=== PATIENT | female | born 1950 | race Caucasian/White ===

== ENCOUNTER 2017-01-09 09:02 | Emergency (ER) | payer MEDICARE ==
[~2017-01-09] VITALS: Ht 170.2 cm; Wt 59.1 kg
[~2017-01-09 09:02] MED LIST: ALBU8.5H3 INH; ASPI-496 PO; ATOR80TA75 PO; AZIT250T89 PO; CARV6.252 PO; CEFD300C37 PO; CLOP75TA PO; DOCU100T3 PO; DOXY100T PO; FEXO180T5 PO; FLUT1DIS3 INH; FLUT9.9S INH; FURO40TA6 PO; GABA300C10 PO; IPRA3AMP INH; ISOS30TA8 PO; LOSA25TA5 PO; NITR0.4T8 SL; OXYC-229 PO; PANT40TA5 PO; PRED20TA PO; PRED5TAB PO; RANI300T PO
[2017-01-09] MEDS ORDERED: SODIUM CHLORIDE FLUSH 10ML SYR IVF ONE (09:30)
[2017-01-09] MEDS ORDERED: ASPIRIN 81 MG TABLET CHEW ONE (09:57)
[2017-01-09 09:58] LABS: HEMATOCRIT 36.7 % (34.6-47.8); HEMOGLOBIN 12.1 g/dL (11.7-16.4)
[2017-01-09] MEDS ORDERED: ASPIRIN 81 MG TABLET CHEW PO ONE (10:00)
[2017-01-09 10:07] LABS: ASPARTATE AMINO TRANSFERASE 12 U/L (15-37); BLOOD UREA NITROGEN 16 mg/dL (7-18)
[2017-01-09 10:13] LABS: IS PT STATUS REG ER OR PRE ER? YES
[2017-01-09] MEDS ORDERED: ALBUTEROL/IPRATROPIUM 2.5MG/0.5MG, 3 ML ONE (10:43)
[2017-01-09] MEDS ORDERED: methylPREDNISolone SOD SUCC 125 MG/2 ML IVP ONE (11:00)
[2017-01-09] MEDS ORDERED: ALBUTEROL/IPRATROPIUM 2.5MG/0.5MG, 3 ML NPPB ONE (11:00)
[2017-01-09 11:04] VITALS: BP 154/71
[2017-01-09] MEDS ORDERED: methylPREDNISolone SOD SUCC 125 MG/2 ML ONE (11:10)
== END 2017-01-09 11:33 | disposition home or self-care (01) ==
LOC: ED 09:46
DX: J44.1 Chronic obstructive pulmonary disease with (acute) exacerbation (principal); E11.9 Type 2 diabetes mellitus without complications; I11.0 Hypertensive heart disease with heart failure; I50.9 Heart failure, unspecified; K21.9 Gastro-esophageal reflux disease without esophagitis
CPT/HCPCS: 36415; 71010; 80053; 83880; 84484; 85025; 93005; 94640; 96374; 99285; J2930; J7620

== ENCOUNTER 2017-02-06 09:33 | Inpatient (IN) | payer OTHER, MEDICAID ==
[~2017-02-06] VITALS: Ht 170.2 cm; Wt 57.3 kg
[~2017-02-06 09:33] MED LIST changes: -ALBU8.5H3 INH; +ALBU8.5H8 INH; +ATOR-2 PO; -ATOR80TA75 PO; +FEXO180T15 PO; -FEXO180T5 PO; +NITR0.4T28 SL; -NITR0.4T8 SL; -OXYC-229 PO; +OXYC-307 PO
[2017-02-06] MEDS ORDERED: ALBUTEROL/IPRATROPIUM 2.5MG/0.5MG, 3 ML NPPB ONE (10:00)
[2017-02-06] MEDS ORDERED: SODIUM CHLORIDE FLUSH 10ML SYR IVF ONE (10:00)
[2017-02-06] MEDS ORDERED: ALBUTEROL/IPRATROPIUM 2.5MG/0.5MG, 3 ML ONE ×2 (10:03→15:51)
[2017-02-06 10:22] LABS: HEMATOCRIT 34.1 % (34.6-47.8); HEMOGLOBIN 11.3 g/dL (11.7-16.4); WHITE BLOOD COUNT 12.8 x10^3/uL (3.4-10)
[2017-02-06 10:33] LABS: BLOOD UREA NITROGEN 12 mg/dL (7-18)
[2017-02-06] MEDS ORDERED: SODIUM CHLORIDE 0.9% 1,000ML IVBOLUS ONE (12:30)
[2017-02-06] MEDS ORDERED: CEFTRIAXONE PMX 1GM/50ML 50 ML IVPB ONE (12:30)
[2017-02-06] MEDS ORDERED: AZITHROMYCIN 500 MG in SODIUM CHLORIDE 0.9% 250 ML IVPB ONE (12:30)
[2017-02-06] MEDS ORDERED: CEFTRIAXONE PMX 1GM/50ML 50 ML ONE (12:41)
[2017-02-06] MEDS ORDERED: SODIUM CHLORIDE FLUSH 10ML SYR IVF PRN ×2 (13:00→19:00)
[2017-02-06] MEDS ORDERED: ACETAMINOPHEN 325 MG TABLET PO PRN ×2 (14:00→19:00)
[2017-02-06] MEDS ORDERED: ALBUTEROL/IPRATROPIUM 2.5MG/0.5MG, 3 ML NEB PRN (14:00)
[2017-02-06] MEDS ORDERED: ONDANSETRON 2MG/ML, 2ML IVPush PRN ×2 (14:00→16:00)
[2017-02-06] MEDS: CEFTRIAXONE PMX 1GM/50ML 50 ML IV SCH (14:00)
[2017-02-06] MEDS ORDERED: NS + 20MEQ KCL 1,000 ML IV SCH (14:00)
[2017-02-06] MEDS ORDERED: DOCUSATE 100 MG CAPSULE PO PRN ×3 (14:00→19:00)
[2017-02-06] MEDS ORDERED: NITROGLYCERIN 0.4 MG BOTTLE (25 TABS) SL PRN ×2 (14:00→16:00)
[2017-02-06] MEDS ORDERED: GUAIFENESIN/DM 200-20MG, 10ML UDC PO PRN (14:00)
[2017-02-06] MEDS: FLUTICASONE NASAL SPRAY 16GM NAS SCH (14:30)
[2017-02-06] MEDS ORDERED: ALBUTEROL SULFATE 2.5 MG/3 ML HHN PRN (14:30)
[2017-02-06] MEDS: OXYcodone/APAP 10/325MG TABLET PO PRN ×2 (14:38→22:22)
[2017-02-06] MEDS: AZITHROMYCIN 500 MG in SODIUM CHLORIDE 0.9% 250 ML IV SCH (14:39)
[2017-02-06] MEDS: methylPREDNISolone SOD SUCC 125 MG/2 ML IVPush SCH ×2 (14:39→19:47)
[2017-02-06 14:56] VITALS: BP 129/56
[2017-02-06 15:30] VITALS: BP 123/53
[2017-02-06] MEDS ORDERED: ALBUTEROL/IPRATROPIUM 2.5MG/0.5MG, 3 ML NPPB SCH (18:00)
[2017-02-06 19:36] VITALS: BP 120/64
[2017-02-06] MEDS: ATORVASTATIN 80 MG TABLET PO SCH (19:47)
[2017-02-06] MEDS: CARVEDILOL 6.25 MG TABLET PO SCH (19:47)
[2017-02-06] MEDS: DOCUSATE 100 MG CAPSULE PO SCH (19:47)
[2017-02-06] MEDS: ALBUTEROL/IPRATROPIUM 2.5MG/0.5MG, 3 ML NPPB SCH (23:59)
[2017-02-07 01:40] VITALS: BP 126/67
[2017-02-07] MEDS: methylPREDNISolone SOD SUCC 125 MG/2 ML IVPush SCH ×4 (01:43→20:19)
[2017-02-07] MEDS: OXYcodone/APAP 10/325MG TABLET PO PRN ×3 (05:39→20:18)
[2017-02-07] MEDS: ALBUTEROL/IPRATROPIUM 2.5MG/0.5MG, 3 ML NPPB SCH ×5 (06:00→23:00)
[2017-02-07 06:50] VITALS: BP 152/81
[2017-02-07] MEDS: DOCUSATE 100 MG CAPSULE PO SCH ×2 (08:22→20:19)
[2017-02-07] MEDS: ASPIRIN 81 MG TABLET EC PO SCH (08:23)
[2017-02-07] MEDS: CARVEDILOL 6.25 MG TABLET PO SCH ×2 (08:23→20:19)
[2017-02-07] MEDS: LOSARTAN 25MG TABLET PO SCH (08:23)
[2017-02-07] MEDS: CLOPIDOGREL 75 MG TABLET PO SCH (08:24)
[2017-02-07] MEDS: FUROSEMIDE 40 MG TABLET PO SCH (08:24)
[2017-02-07] MEDS: SENNA/DOCUSATE TABLET PO SCH (08:24)
[2017-02-07] MEDS: GABAPENTIN 300 MG CAPSULE PO SCH (08:24)
[2017-02-07] MEDS: ISOSORBIDE MONONITRATE ER 30 MG TABLET PO SCH (08:24)
[2017-02-07] MEDS ORDERED: FUROSEMIDE 40 MG TABLET PO SCH (09:00)
[2017-02-07] MEDS ORDERED: LOSARTAN 25MG TABLET PO SCH (09:00)
[2017-02-07] MEDS ORDERED: ASPIRIN 81 MG TABLET EC PO SCH (09:00)
[2017-02-07] MEDS ORDERED: CLOPIDOGREL 75 MG TABLET PO SCH ×2 (09:00)
[2017-02-07] MEDS ORDERED: SENNA/DOCUSATE TABLET PO SCH (09:00)
[2017-02-07] MEDS ORDERED: ISOSORBIDE MONONITRATE ER 30 MG TABLET PO SCH (09:00)
[2017-02-07] MEDS: FLUTICASONE NASAL SPRAY 16GM NAS SCH (11:32)
[2017-02-07] MEDS: CEFTRIAXONE PMX 1GM/50ML 50 ML IV SCH (12:50)
[2017-02-07] MEDS: AZITHROMYCIN 500 MG in SODIUM CHLORIDE 0.9% 250 ML IV SCH (14:00)
[2017-02-07 14:08] VITALS: BP 128/67
[2017-02-07] MEDS: DIPHENHYDRAMINE 25 MG CAPSULE PO PRN (16:46)
[2017-02-07 18:49] VITALS: BP 148/62
[2017-02-07] MEDS: ATORVASTATIN 80 MG TABLET PO SCH (20:19)
[2017-02-08 01:15] VITALS: BP 143/66
[2017-02-08] MEDS: OXYcodone/APAP 10/325MG TABLET PO PRN ×2 (01:46→09:53)
[2017-02-08] MEDS: methylPREDNISolone SOD SUCC 125 MG/2 ML IVPush SCH ×2 (01:54→08:16)
[2017-02-08] MEDS: ALBUTEROL/IPRATROPIUM 2.5MG/0.5MG, 3 ML NPPB SCH ×2 (06:00→10:50)
[2017-02-08 06:52] VITALS: BP 138/71
[2017-02-08] MEDS ORDERED: DOXY100T PO (07:27)
[2017-02-08] MEDS ORDERED: CEFD300C37 PO (07:27)
[2017-02-08] MEDS ORDERED: PRED20TA PO (07:27)
[2017-02-08] MEDS ORDERED: IPRA3AMP NPPB (07:27)
[2017-02-08] MEDS ORDERED: DIPH25CA61 PO (07:27)
[2017-02-08] MEDS: FLUTICASONE NASAL SPRAY 16GM NAS SCH (08:16)
[2017-02-08] MEDS: CARVEDILOL 6.25 MG TABLET PO SCH (08:19)
[2017-02-08] MEDS: DOCUSATE 100 MG CAPSULE PO SCH (08:19)
[2017-02-08] MEDS: ASPIRIN 81 MG TABLET EC PO SCH (08:20)
[2017-02-08] MEDS: FUROSEMIDE 40 MG TABLET PO SCH (08:20)
[2017-02-08] MEDS: ISOSORBIDE MONONITRATE ER 30 MG TABLET PO SCH (08:20)
[2017-02-08] MEDS: LOSARTAN 25MG TABLET PO SCH (08:20)
[2017-02-08] MEDS: CLOPIDOGREL 75 MG TABLET PO SCH (08:21)
[2017-02-08] MEDS: SENNA/DOCUSATE TABLET PO SCH (08:21)
[2017-02-08] MEDS: GABAPENTIN 300 MG CAPSULE PO SCH (08:21)
[2017-02-08] MEDS: DIPHENHYDRAMINE 25 MG CAPSULE PO PRN (08:27)
== END 2017-02-08 11:39 | disposition home or self-care (01) | DRG 871 ==
LOC: ED 12:15 → EDIP 12:36 → 3NE 13:33 → DCLOUNGE 02-08 11:23
PROVIDERS: ADMIT Internal Medicine; ATTEND Family Medicine
DX: A41.9 Sepsis, unspecified organism (principal); J18.9 Pneumonia, unspecified organism; J96.21 Acute and chronic respiratory failure with hypoxia; I11.0 Hypertensive heart disease with heart failure; E44.0 Moderate protein-calorie malnutrition; I50.22 Chronic systolic (congestive) heart failure; J44.1 Chronic obstructive pulmonary disease with (acute) exacerbation; J44.0 Chronic obstructive pulmonary disease with (acute) lower respiratory infection; Z68.1 Body mass index [BMI] 19.9 or less, adult; D50.9 Iron deficiency anemia, unspecified; E78.5 Hyperlipidemia, unspecified; I25.10 Atherosclerotic heart disease of native coronary artery without angina pectoris; K21.9 Gastro-esophageal reflux disease without esophagitis; Z66 Do not resuscitate; E11.51 Type 2 diabetes mellitus with diabetic peripheral angiopathy without gangrene; I25.2 Old myocardial infarction; Z82.49 Family history of ischemic heart disease and other diseases of the circulatory system; Z82.5 Family history of asthma and other chronic lower respiratory diseases; Z83.3 Family history of diabetes mellitus; Z87.891 Personal history of nicotine dependence; Z89.512 Acquired absence of left leg below knee; Z95.810 Presence of automatic (implantable) cardiac defibrillator; Z99.81 Dependence on supplemental oxygen
CPT/HCPCS: 36415; 71010; 80048; 82040; 83880; 85025; 87040; 93005; 94640; 96365; J0456; J0696; J3480; J7620; J2930; J7030; J7050; J7512; Q0163

== ENCOUNTER 2017-03-08 16:01 | Inpatient (IN) | payer OTHER, MEDICAID ==
[~2017-03-08] VITALS: Ht 170.2 cm; Wt 61.4 kg
[~2017-03-08 16:01] MED LIST changes: +DIPH25CA61 PO; +IPRA3AMP NPPB
[2017-03-08] MEDS ORDERED: ALBUTEROL/IPRATROPIUM 2.5MG/0.5MG, 3 ML ONE (16:22)
[2017-03-08] MEDS ORDERED: ALBUTEROL SULFATE 2.5 MG/3 ML ONE (16:23)
[2017-03-08] MEDS ORDERED: ALBUTEROL SULFATE 2.5 MG/3 ML NPPB ONE (16:30)
[2017-03-08] MEDS ORDERED: SODIUM CHLORIDE FLUSH 10ML SYR IVF ONE (16:30)
[2017-03-08 16:37] LABS: RAPID INFLUENZA A Negative (Negative); RAPID INFLUENZA B Negative (Negative)
[2017-03-08 16:42] LABS: HEMATOCRIT 34.5 % (34.6-47.8); HEMOGLOBIN 11.1 g/dL (11.7-16.4); WHITE BLOOD COUNT 8.4 x10^3/uL (3.4-10)
[2017-03-08 16:55] LABS: BLOOD UREA NITROGEN 15 mg/dL (7-18)
[2017-03-08 17:00] LABS: ASPARTATE AMINO TRANSFERASE 19 U/L (15-37)
[2017-03-08] MEDS ORDERED: DULO20CA45 PO (18:40)
[2017-03-08] MEDS ORDERED: ALBU18HF INH (18:40)
[2017-03-08] MEDS ORDERED: NS + 20MEQ KCL 1,000 ML IV SCH (19:43)
[2017-03-08] MEDS ORDERED: HYDROcodone/APAP 5/325 TABLET PO PRN (20:00)
[2017-03-08] MEDS ORDERED: morphine SULFATE 10 MG/ML, 1ML IVPush PRN (20:00)
[2017-03-08] MEDS ORDERED: POLYETHYLENE GLYCOL 17 GM PACKET PO PRN (20:00)
[2017-03-08] MEDS ORDERED: TEMPLATE NON-FORMULARY MED. (Albuterol Sulfate (Proair Hfa) 90 MCG) INH PRN (20:00)
[2017-03-08] MEDS ORDERED: ACETAMINOPHEN 325 MG TABLET PO PRN (20:00)
[2017-03-08] MEDS ORDERED: ALBUTEROL/IPRATROPIUM 2.5MG/0.5MG, 3 ML HHN PRN (20:00)
[2017-03-08] MEDS ORDERED: NITROGLYCERIN 0.4 MG BOTTLE (25 TABS) SL PRN (20:00)
[2017-03-08] MEDS ORDERED: DOCUSATE 100 MG CAPSULE PO PRN (20:00)
[2017-03-08] MEDS ORDERED: GUAIFENESIN/DM 200-20MG, 10ML UDC PO PRN (20:00)
[2017-03-08] MEDS ORDERED: ONDANSETRON 2MG/ML, 2ML IVPush PRN (20:00)
[2017-03-08] MEDS ORDERED: DIPHENHYDRAMINE 25 MG CAPSULE PO PRN (20:00)
[2017-03-08] MEDS: FLUTICASONE NASAL SPRAY 16GM NAS SCH (22:00)
[2017-03-08] MEDS: ALBUTEROL/IPRATROPIUM 2.5MG/0.5MG, 3 ML NPPB SCH (22:00)
[2017-03-08] MEDS: CEFTRIAXONE PMX 1GM/50ML 50 ML IV SCH (22:39)
[2017-03-08] MEDS: DOXYCYCLINE 100 MG in DEXTROSE 5% 250 ML IV SCH (23:23)
[2017-03-08] MEDS: ENOXAPARIN 40 MG/0.4 ML SQ SCH (23:23)
[2017-03-08] MEDS: methylPREDNISolone SOD SUCC 125 MG/2 ML IVPush SCH (23:24)
[2017-03-08] MEDS: CARVEDILOL 6.25 MG TABLET PO SCH (23:24)
[2017-03-08] MEDS: ATORVASTATIN 80 MG TABLET PO SCH (23:24)
[2017-03-08 23:36] VITALS: BP 157/78
[2017-03-08] MEDS: OXYcodone/APAP 10/325MG TABLET PO PRN (23:59)
[2017-03-09 01:57] VITALS: BP 150/68
[2017-03-09] MEDS: methylPREDNISolone SOD SUCC 125 MG/2 ML IVPush SCH ×3 (04:04→20:27)
[2017-03-09] MEDS: ALBUTEROL/IPRATROPIUM 2.5MG/0.5MG, 3 ML NPPB SCH ×5 (04:15→22:45)
[2017-03-09 08:05] VITALS: BP 152/89
[2017-03-09] MEDS: DOXYCYCLINE 100 MG in DEXTROSE 5% 250 ML IV SCH ×2 (08:38→20:27)
[2017-03-09] MEDS: GABAPENTIN 300 MG CAPSULE PO SCH (08:41)
[2017-03-09] MEDS: SENNA/DOCUSATE TABLET PO SCH (08:42)
[2017-03-09] MEDS: ASPIRIN 81 MG TABLET EC PO SCH (08:42)
[2017-03-09] MEDS: FUROSEMIDE 40 MG TABLET PO SCH (08:43)
[2017-03-09] MEDS: LOSARTAN 25MG TABLET PO SCH (08:44)
[2017-03-09] MEDS: CARVEDILOL 6.25 MG TABLET PO SCH ×2 (08:44→20:24)
[2017-03-09] MEDS: CLOPIDOGREL 75 MG TABLET PO SCH (08:45)
[2017-03-09] MEDS: ISOSORBIDE MONONITRATE ER 30 MG TABLET PO SCH (08:45)
[2017-03-09] MEDS: OXYcodone/APAP 10/325MG TABLET PO PRN ×3 (08:46→19:30)
[2017-03-09] MEDS: DULOXETINE 20 MG CAPSULE.DR PO SCH (08:46)
[2017-03-09] MEDS: FLUTICASONE NASAL SPRAY 16GM NAS SCH (12:26)
[2017-03-09 13:35] VITALS: BP 133/66
[2017-03-09 14:49] LABS: FERRITIN 75.8 ng/mL (8-252)
[2017-03-09] MEDS: CEFTRIAXONE PMX 1GM/50ML 50 ML IV SCH (19:30)
[2017-03-09 20:05] VITALS: BP 139/72
[2017-03-09] MEDS: ATORVASTATIN 80 MG TABLET PO SCH (20:24)
[2017-03-09] MEDS: ENOXAPARIN 40 MG/0.4 ML SQ SCH (20:29)
[2017-03-10 01:52] VITALS: BP 159/79
[2017-03-10] MEDS: OXYcodone/APAP 10/325MG TABLET PO PRN ×3 (03:10→17:38)
[2017-03-10] MEDS: methylPREDNISolone SOD SUCC 125 MG/2 ML IVPush SCH ×2 (04:28→15:51)
[2017-03-10] MEDS: ALBUTEROL/IPRATROPIUM 2.5MG/0.5MG, 3 ML NPPB SCH ×4 (06:00→18:54)
[2017-03-10 06:43] LABS: HEMATOCRIT 33.1 % (34.6-47.8); HEMOGLOBIN 10.9 g/dL (11.7-16.4); WHITE BLOOD COUNT 14.1 x10^3/uL (3.4-10)
[2017-03-10 07:01] LABS: BLOOD UREA NITROGEN 21 mg/dL (7-18)
[2017-03-10 08:30] VITALS: BP 149/87
[2017-03-10] MEDS: DOXYCYCLINE 100 MG in DEXTROSE 5% 250 ML IV SCH ×2 (08:32→21:58)
[2017-03-10] MEDS: CLOPIDOGREL 75 MG TABLET PO SCH (08:32)
[2017-03-10] MEDS: CARVEDILOL 6.25 MG TABLET PO SCH ×2 (08:32→20:04)
[2017-03-10] MEDS: DULOXETINE 20 MG CAPSULE.DR PO SCH (08:32)
[2017-03-10] MEDS: GABAPENTIN 300 MG CAPSULE PO SCH (08:33)
[2017-03-10] MEDS: FUROSEMIDE 40 MG TABLET PO SCH (08:33)
[2017-03-10] MEDS: LOSARTAN 25MG TABLET PO SCH (08:33)
[2017-03-10] MEDS: ISOSORBIDE MONONITRATE ER 30 MG TABLET PO SCH (08:33)
[2017-03-10] MEDS: ASPIRIN 81 MG TABLET EC PO SCH (08:33)
[2017-03-10] MEDS: SENNA/DOCUSATE TABLET PO SCH (08:33)
[2017-03-10] MEDS: FLUTICASONE NASAL SPRAY 16GM NAS SCH (08:36)
[2017-03-10] MEDS ORDERED: PRED20TA PO (10:33)
[2017-03-10] MEDS ORDERED: CEFD300C37 PO (10:33)
[2017-03-10] MEDS ORDERED: FERR325T18 PO (10:33)
[2017-03-10] MEDS ORDERED: DOXY100T PO (10:36)
[2017-03-10] MEDS ORDERED: ALBUTEROL SULFATE 2.5 MG/3 ML NPPB PRN (12:00)
[2017-03-10 14:30] VITALS: BP_SYST 114; BP_SYST 153; BP_DIAS 75; BP_DIAS 87
[2017-03-10 19:47] VITALS: BP 156/75
[2017-03-10] MEDS: ATORVASTATIN 80 MG TABLET PO SCH (20:03)
[2017-03-10] MEDS: CEFTRIAXONE PMX 1GM/50ML 50 ML IV SCH (20:04)
[2017-03-10] MEDS: ENOXAPARIN 40 MG/0.4 ML SQ SCH (20:04)
[2017-03-11] MEDS: OXYcodone/APAP 10/325MG TABLET PO PRN ×3 (01:01→16:22)
[2017-03-11 02:40] VITALS: BP 157/79
[2017-03-11] MEDS: methylPREDNISolone SOD SUCC 125 MG/2 ML IVPush SCH ×2 (02:45→11:54)
[2017-03-11] MEDS: ALBUTEROL/IPRATROPIUM 2.5MG/0.5MG, 3 ML NPPB SCH ×3 (06:55→14:32)
[2017-03-11 08:30] VITALS: BP 174/83
[2017-03-11] MEDS: FUROSEMIDE 40 MG TABLET PO SCH (08:55)
[2017-03-11] MEDS: SENNA/DOCUSATE TABLET PO SCH (08:55)
[2017-03-11] MEDS: ASPIRIN 81 MG TABLET EC PO SCH (08:55)
[2017-03-11] MEDS: ISOSORBIDE MONONITRATE ER 30 MG TABLET PO SCH (08:55)
[2017-03-11] MEDS: DULOXETINE 20 MG CAPSULE.DR PO SCH (08:55)
[2017-03-11] MEDS: FLUTICASONE NASAL SPRAY 16GM NAS SCH (08:55)
[2017-03-11] MEDS: GABAPENTIN 300 MG CAPSULE PO SCH (08:55)
[2017-03-11] MEDS: LOSARTAN 25MG TABLET PO SCH (08:56)
[2017-03-11] MEDS: CARVEDILOL 6.25 MG TABLET PO SCH (08:56)
[2017-03-11] MEDS: CLOPIDOGREL 75 MG TABLET PO SCH (08:56)
[2017-03-11] MEDS: DOXYCYCLINE 100 MG in DEXTROSE 5% 250 ML IV SCH (08:56)
[2017-03-11] MEDS ORDERED: ONDANSETRON ODT 4 MG PO PRN (12:30)
[2017-03-11 14:30] VITALS: BP 109/52
[2017-03-11] MEDS ORDERED: CEFDINIR 300 MG CAPSULE PO SCH (21:00)
[2017-03-11] MEDS ORDERED: DOXYCYCLINE 100MG TABLET PO SCH (21:00)
== END 2017-03-11 18:37 | disposition home or self-care (01) | DRG 189 ==
LOC: ED 16:17 → EDIP 19:24 → SUATTDRO 19:34 → 3NE 21:36
PROVIDERS: ADMIT Family Medicine; ATTEND Family Medicine
DX: J96.20 Acute and chronic respiratory failure, unspecified whether with hypoxia or hypercapnia (principal); E11.51 Type 2 diabetes mellitus with diabetic peripheral angiopathy without gangrene; I50.22 Chronic systolic (congestive) heart failure; I11.0 Hypertensive heart disease with heart failure; J44.1 Chronic obstructive pulmonary disease with (acute) exacerbation; Z99.81 Dependence on supplemental oxygen; Z96.641 Presence of right artificial hip joint; D50.9 Iron deficiency anemia, unspecified; E78.5 Hyperlipidemia, unspecified; I25.10 Atherosclerotic heart disease of native coronary artery without angina pectoris; K21.9 Gastro-esophageal reflux disease without esophagitis; K59.00 Constipation, unspecified; Z66 Do not resuscitate; Z82.49 Family history of ischemic heart disease and other diseases of the circulatory system; Z82.5 Family history of asthma and other chronic lower respiratory diseases; Z83.3 Family history of diabetes mellitus; Z87.891 Personal history of nicotine dependence; Z89.512 Acquired absence of left leg below knee; Z95.5 Presence of coronary angioplasty implant and graft; Z95.810 Presence of automatic (implantable) cardiac defibrillator; I25.2 Old myocardial infarction; Z88.8 Allergy status to other drugs, medicaments and biological substances
CPT/HCPCS: 36415; 71010; 80048; 80053; 82728; 83540; 83550; 83880; 84466; 85025; 87400; 93005; 94640; 99285; J0696; J1650; J2405; J3480; J7060; J7613; J7620; J2930; J7512